=== PATIENT | male | born 1955 | race Caucasian/White ===

== ENCOUNTER 2016-12-21 09:39 | Emergency (ER) | payer BC ==
[~2016-12-21] VITALS: Ht 170.2 cm; Wt 53.6 kg
[~2016-12-21 09:39] MED LIST: ALBUAER2 INH; ASPI-232 PO; ATV1 PO; CALCTAB5 PO; HERBALS PO; LUTE10TA PO; MULT-506 PO; NICO21DI12 TD; OXYC-57 PO; RXC5 PO
[2016-12-21 09:40] VITALS: TEMP 36.3; Ht 170.2 cm; Wt 53.6 kg
--- NOTE | 2016-12-21 10:04 | EMERGENCY ROOM VISIT NOTE ---
History Report prepared by Anupama: Dulce Leal Under the Supervision of: Dr. Juan R Berg M.D. First contact with patient: 09:45 Chief Complaint: ABDOMINAL PAIN Stated Complaint: STOMACH PAIN Nursing Triage Summary: LLQ abd pain, nausea, comes and goes, sharp in nature. History of Present Illness The patient is a 61 year old male who presents to the Emergency Room with complaints of intermittent left lower quadrant abdominal pain that began two years ago. He currently rates his discomfort as a 7/10 in severity. The patient states that two years ago he had neck surgery and states that since then he has intermittently had left lower quadrant abdominal pain. He describes his discomfort as a sharp pain when it comes. The patient states that his pain normally starts at night, but states that by morning his pain is typically gone. He states that this morning his pain was still present. The patient notes that he has had problems with his bowel movements since his surgery. He states that right after his surgery he was taking 8-10 Percocet daily. The patient states that he was very constipated while taking the pain medications, so he stopped taking them completely. He states that he has been using Doctylax each night. The patient states that he has consulted his PCP regarding his pain, but states that he was told it was nothing to worry about. He states that he had a colonoscopy in October. The patient states that he had two polyps removed, but states that everything else was normal. The patient notes that last evening he had chills, but denies any fever or urinary symptoms. He states that he takes 1 mg of Lorazepam at night and medication for his depression. He states that he previously took Ibuprofen for his discomfort, but states that now he has been taking Tylenol. Source of History: patient Onset: two years ago Position: abdomen (LLQ) Symptom Intensity: 7/10 Quality: sharp Timing: intermittent Associated Symptoms: + chills, No fevers, No urinary symptoms Note: Associated Symptoms: constipation Review of Systems All systems have been listed, reviewed, and are negative other than those previously mentioned. Please see Additional Medical History Sheet. Past Medical & Surgical Medical Problems: (1) Arthritis Surgical Problems: (1) H/O neck surgery (2) H/O vasectomy Family History No significant family history Social History Smoking Status: Former Smoker Alcohol Use: none Drug Use: none Marital Status: single Occupation Status: retired Current/Historical Medications Scheduled Aspirin (Aspir-81), 81 MG PO QAM Echinacea (Echinacea), 2 CAP PO QAM Escitalopram (Lexapro), 10 MG PO QAM Lutein (Lutein), 10 MG PO QAM Misc Natural Products (Ginkgo Biloba), 1 TAB PO QAM Zinc Gluconate (Zinc), 1 TAB PO QAM Scheduled PRN Dicyclomine Hcl (Bentyl), 20 MG PO Q6H PRN for abdominal pain Lorazepam (Lorazepam), 1 MG PO Q8H PRN for Anxiety and/or Sedation Oxycodone HCl (Oxycodone HCl), 5 MG PO Q4H PRN for moderate pain (pain scale 4-6 ) Oxycodone/Acetaminophen 5MG/325MG (Percocet 5MG/325MG), 1-2 TABLETS PO Q4H PRN for RN Allergies Coded Allergies: Flu Virus Vaccine (Verified Allergy, Unknown, VERY SICK 2 WEEKS, 12/21/16) Propoxyphene (Verified Adverse Reaction, Intermediate, nausea & vomiting, 12/21/16) Physical Exam Vital Signs Date Time Temp Pulse Resp B/P Pulse Ox O2 Delivery O2 Flow Rate FiO2 12/21/16 12:34 63 18 156/88 98 Room Air 12/21/16 09:40 36.3 88 18 144/97 99 Room Air Physical Exam GENERAL: Patient awake, alert, oriented x 3 and anxious. Patient follows commands. Patient does not appear toxic. Patient is adequately hydrated and well-nourished. SKIN: No erythema, pallor, cyanosis or rash HEENT: Normal head, pupils equal, reactive to light and accommodation. Ears normal. Oral cavity and posterior pharynx appear normal. Neck: Without adenopathy, no neck vein distention. LUNGS: Clear to auscultation. No wheezes, no rales, no rhonchi. HEART: No murmurs. No gallops. No rubs ABDOMEN: Vague left lower quadrant abdominal tenderness. No masses, no rebound , no hepatomegaly or splenomegaly. RECTAL: Prostate is not enlarged, no masses. 1 small external hemorrhoid noted. No stool obtained. EXTREMITIES: No signs of trauma. No pedal or pretibial edema. No calf or thigh tenderness. NEUROLOGIC: Cranial nerves II-XII within normal limits. No gross motor sensory function deficits. Medical Decision & Procedures Laboratory Results 12/21/16 10:05 12/21/16 10:05 Test 12/21/16 10:05 12/21/16 11:10 Red Blood Count 4.42 M/uL (4.7-6.1) Mean Corpuscular Volume 88.7 fL (80-100) Mean Corpuscular Hemoglobin 31.4 pg (25-34) Mean Corpuscular Hemoglobin Concent 35.5 g/dl (32-36) RDW Standard Deviation 46.9 fL (36.4-46.3) RDW Coefficient of Variation 14.3 % (11.5-14.5) Mean Platelet Volume 10.9 fL (7.4-10.4) Anion Gap 10.0 mmol/L (3-11) Est Creatinine Clear Calc Drug Dose 45.2 ml/min Estimated GFR () 68.3 Estimated GFR (Non- 58.9 BUN/Creatinine Ratio 12.5 (10-20) Calcium Level 8.7 mg/dl (8.5-10.1) Total Bilirubin 0.7 mg/dl (0.2-1) Aspartate Amino Transf (AST/SGOT) 22 U/L (15-37) Alanine Aminotransferase (ALT/SGPT) 20 U/L (12-78) Alkaline Phosphatase 143 U/L (45-117) Total Protein 7.3 gm/dl (6.4-8.2) Albumin 3.6 gm/dl (3.4-5.0) Globulin 3.7 gm/dl (2.5-4.0) Albumin/Globulin Ratio 1.0 (0.9-2) Urine Color YELLOW Urine Appearance CLEAR (CLEAR) Urine pH 6.5 (4.5-7.5) Urine Specific [place] 1.010 (1.000-1.030) Urine Protein TRACE (NEG) Urine Glucose (UA) NEG (NEG) Urine Ketones TRACE (NEG) Urine Occult Blood NEG (NEG) Urine Nitrite NEG (NEG) Urine Bilirubin NEG (NEG) Urine Urobilinogen NEG (NEG) Urine Leukocyte Esterase NEG (NEG) Urine WBC (Auto) 1-5 /hpf (0-5) Urine RBC (Auto) 0-4 /hpf (0-4) Urine Hyaline Casts (Auto) 1-5 /lpf (0-5) Urine Epithelial Cells (Auto) 5-10 /lpf (0-5) Urine Bacteria (Auto) NEG (NEG) Laboratory results as stated above per my review. ED Course 0946: Past medical records reviewed. The patient was evaluated in room B12B. A complete history and physical examination was performed. 1238: I reevaluated the patient and he is resting comfortably. I discussed the exam findings with him and I discussed the treatment plan. He verbalized complete understanding and agreement. He is ready to go home. Medical Decision Nurses notes reviewed. Medical history sheet reviewed. Differential diagnosis includes but is not limited to: constipation, Crohn's disease, ulcerative colitis, bowel obstruction. The patient is here complaining of frequent constipation. He did have a bowel movement this morning. Rectal exam today does not reveal any impaction or stool. Blood work and urinalysis were also evaluated. I do not believe he requires any imaging studies today. The patient is not obstructed. The patient had a recent colonoscopy. The patient's been taking Dulcolax and a daily basis. I was prefer that he take Colace regularly and increase fiber in his diet. The patient was also given a prescription for Bentyl. The patient's to follow-up with his family physician. I have also encouraged him to follow- up with a kerrick kleaner operator. The patient improved while here in the ED without any medication. Impression Primary Impression: Constipation Scribe Attestation The scribe's documentation has been prepared under my direction and personally reviewed by me in its entirety. I confirm that the note above accurately reflects all work, treatment, procedures, and medical decision making performed by me. Departure Information Dispostion Home / Self-Care Prescriptions Dicyclomine Hcl (BENTYL) 20 Mg Tab 20 MG PO Q6H Y for abdominal pain, #30 TAB Prov: Juan R Berg M.D. 12/21/16 Referrals Calvin Estes M.D. (PCP) Forms HOME CARE DOCUMENTATION FORM, IMPORTANT VISIT INFORMATION Patient Instructions My [facility] Additional Instructions 1 Bentyl every 6 hours as needed for abdominal pain. 1 Colace twice a day. You should attempt to stop taking Dulcolax. Increase fluid intake. Increase fiber in your diet. Follow-up with a kerrick kleaner operator and with your family physician as soon as possible.
[2016-12-21] MEDS ORDERED: ECHI80CA PO (10:22)
[2016-12-21] MEDS ORDERED: ZINC1TAB PO (10:22)
[2016-12-21] MEDS ORDERED: ESCI10TA17 PO (10:22)
[2016-12-21] MEDS ORDERED: MISCTAB26 PO (10:22)
[2016-12-21 10:41] LABS: HEMATOCRIT 39.2 % (42-52); MEAN CELL VOLUME 88.7 fL (80-100); MEAN CORPUSCULAR HEMOGLOBIN 31.4 pg (25-34); MEAN CORPUSCULAR HGB CONC 35.5 g/dl (32-36); MEAN PLATELET VOLUME 10.9 fL (7.4-10.4); PLATELET COUNT 367 K/uL (130-400); RED BLOOD COUNT 4.42 M/uL (4.7-6.1); WHITE BLOOD COUNT 10.48 K/uL (4.8-10.8)
[2016-12-21 10:58] LABS: BUN/CREATININE RATIO 12.5 (10-20); CALCIUM 8.7 mg/dl (8.5-10.1); CREATININE 1.3 mg/dl (0.60-1.40); POTASSIUM 3.6 mmol/L (3.5-5.1)
[2016-12-21 12:16] LABS: URINE APPEARANCE CLEAR (CLEAR); URINE BILIRUBIN NEG (NEG); URINE COLOR YELLOW; URINE NITRITE NEG (NEG); URINE PH 6.5 (4.5-7.5); UROBILINOGEN NEG (NEG); ZZUR CULT IF INDIC CLEAN CATCH NO
[2016-12-21 12:27] LABS: MANUAL MICROSCOPIC REQUIRED? NO; REVIEW REQ? NO
[2016-12-21 12:34] VITALS: BP 156/88; PULSE 63; O2SAT 98
[2016-12-21] MEDS ORDERED: DICY20TA35 PO (12:48)
== END 2016-12-21 12:58 | disposition home or self-care (01) ==
LOC: C.EDB 09:40
DX: K59.00 Constipation, unspecified (principal); M19.90 Unspecified osteoarthritis, unspecified site; Z87.891 Personal history of nicotine dependence; Z79.82 Long term (current) use of aspirin; Z79.899 Other long term (current) drug therapy

== ENCOUNTER 2017-10-31 11:35 | Emergency (ER) | payer BC, OTHER ==
[~2017-10-31] VITALS: Ht 172.7 cm; Wt 54.3 kg
[~2017-10-31 11:35] MED LIST changes: -ALBUAER2 INH; -CALCTAB5 PO; +ECHI80CA PO; +ESCI10TA17 PO; -HERBALS PO; +MISCTAB26 PO; -MULT-506 PO; -NICO21DI12 TD; +ZINC1TAB PO
[2017-10-31 11:54] VITALS: TEMP 36.8; Ht 172.7 cm; Wt 54.3 kg
[2017-10-31] MEDS ORDERED: ALBUT/IPRATROP 3MG/0.5MG NEB 3 ML VIAL INH STA (12:58)
--- NOTE | 2017-10-31 13:01 | EMERGENCY ROOM VISIT NOTE ---
History Report prepared by Anupama: Baldomero Matthew Under the Supervision of: Dr. Rocky Willard M.D. First contact with patient: 12:43 Chief Complaint: SHORTNESS OF BREATH Stated Complaint: SOB, NAUSEA, TINGLING IN L HAND Nursing Triage Summary: Patient presents with c/o shortness of breath, nausea, fatigue, and tingling in his right hand. States nausea started a week ago. SOB for 4 days. Tingling in hand began a few hours ago History of Present Illness The patient is a 62 year old male who presents to the Emergency Room with complaints of worsening shortness of breath that began today several hours prior to arrival. The patient admits that he has shortness of breath at his baseline and has been a smoker for 40 years. He usually feels SOB when he wakes up in the morning and it subsides by the afternoon. Today it did not subside. The patient also complains of "numbness" in his bilateral hands as well as nausea. He takes Razepam daily for anxiety/panic attacks. 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 A total of 10 systems reviewed and were otherwise negative. Past Medical & Surgical Medical Problems: (1) Arthritis Surgical Problems: (1) H/O neck surgery (2) H/O vasectomy Old medical records were reviewed. Nurse's notes were reviewed and I agree with. Family History No significant family history Social History Smoking Status: Current Every Day Smoker Alcohol Use: none Drug Use: none Marital Status: single Occupation Status: retired Current/Historical Medications Scheduled Aspirin (Aspir-81), 81 MG PO QAM Echinacea (Echinacea), 2 CAP PO QAM Escitalopram (Lexapro), 10 MG PO QAM Lutein (Lutein), 10 MG PO QAM Misc Natural Products (Ginkgo Biloba), 1 TAB PO QAM Zinc Gluconate (Zinc), 1 TAB PO QAM Scheduled PRN Lorazepam (Lorazepam), 1 MG PO Q8H PRN for Anxiety and/or Sedation Allergies Coded Allergies: Flu Virus Vaccine (Verified Allergy, Unknown, VERY SICK 2 WEEKS, 12/21/16) Propoxyphene (Verified Adverse Reaction, Intermediate, nausea & vomiting, 12/21/16) Physical Exam Vital Signs Date Time Temp Pulse Resp B/P (MAP) Pulse Ox O2 Delivery O2 Flow Rate FiO2 10/31/17 13:45 65 10/31/17 11:54 36.8 94 24 127/87 99 Room Air Physical Exam General: Non-ill appearing middle aged male in no acute distress. HEENT: Normal cephalic atraumatic. Pupils are equal round and reactive to light. Extraocular movements are intact. Oropharynx is pink with moist mucous membranes. No swelling of the mouth lips or tongue. Neck: Supple with a midline trachea. No meningeal signs or stiffness, no JVD or bruits. No Stridor. Chest: Mildly tachypneic Clear to auscultation bilaterally. No wheezes or rhonchi. No increased work of breathing. Heart: regular rate and rhythm. Abdomen: Soft nontender, nondistended without rebound guarding or rigidity. Extremities: No cyanosis clubbing or edema. No calf tenderness or assymetry. PT complains of tingling in hands, no numbness, weakness, or contractures. Spine/Back. Non tender to palpation. No CVA tenderness Skin: Good turgor without rashes. Neurologic exam: Cranial nerves two through 12 are intact. Motor and sensation are intact and symmetrical throughout. Medical Decision & Procedures ER Provider Diagnostic Interpretation: Radiology results as stated below per my review and radiologist interpretation: CHEST ONE VIEW PORTABLE CLINICAL HISTORY: Atypical chest pain COMPARISON STUDY: 04/05/2015 FINDINGS: The chest has an emphysematous configuration. There is no focal pulmonary consolidation. There is no failure. There are no pleural effusions. Postsurgical changes are present within the cervical spine[ IMPRESSION: Emphysema. No acute findings. Electronically signed by: Christopher Mata M.D. 10/31/2017 1:14 PM Dictated Date/Time: 10/31/2017 1:14 PM Laboratory Results 10/31/17 13:30 Red Blood Count 5.13, Mean Corpuscular Volume 86.9, Mean Corpuscular Hemoglobin 31.2, Mean Corpuscular Hemoglobin Concent 35.9, Mean Platelet Volume 10.8, Neutrophils (%) (Auto) 68.5, Lymphocytes (%) (Auto) 18.0, Monocytes (%) (Auto) 12.1, Eosinophils (%) (Auto) 0.7, Basophils (%) (Auto) 0.5, Neutrophils # (Auto ) 7.15, Lymphocytes # (Auto) 1.88, Monocytes # (Auto) 1.26, Eosinophils # (Auto ) 0.07, Basophils # (Auto) 0.05 10/31/17 13:30 Test 10/31/17 13:30 10/31/17 13:36 White Blood Count 10.43 K/uL (4.8-10.8) Red Blood Count 5.13 M/uL (4.7-6.1) Hemoglobin 16.0 g/dL (14.0-18.0) Hematocrit 44.6 % (42-52) Mean Corpuscular Volume 86.9 fL (80-100) Mean Corpuscular Hemoglobin 31.2 pg (25-34) Mean Corpuscular Hemoglobin Concent 35.9 g/dl (32-36) Platelet Count 338 K/uL (130-400) Mean Platelet Volume 10.8 fL (7.4-10.4) Neutrophils (%) (Auto) 68.5 % Lymphocytes (%) (Auto) 18.0 % Monocytes (%) (Auto) 12.1 % Eosinophils (%) (Auto) 0.7 % Basophils (%) (Auto) 0.5 % Neutrophils # (Auto) 7.15 K/uL (1.4-6.5) Lymphocytes # (Auto) 1.88 K/uL (1.2-3.4) Monocytes # (Auto) 1.26 K/uL (0.11-0.59) Eosinophils # (Auto) 0.07 K/uL (0-0.5) Basophils # (Auto) 0.05 K/uL (0-0.2) RDW Standard Deviation 46.8 fL (36.4-46.3) RDW Coefficient of Variation 14.7 % (11.5-14.5) Immature Granulocyte % (Auto) 0.2 % Immature Granulocyte # (Auto) 0.02 K/uL (0.00-0.02) Anion Gap 10.0 mmol/L (3-11) Est Creatinine Clear Calc Drug Dose 36.3 ml/min Estimated GFR () 51.9 Estimated GFR (Non- 44.8 BUN/Creatinine Ratio 10.0 (10-20) Calcium Level 9.6 mg/dl (8.5-10.1) Total Bilirubin 1.6 mg/dl (0.2-1) Direct Bilirubin 0.2 mg/dl (0-0.2) Aspartate Amino Transf (AST/SGOT) 48 U/L (15-37) Alanine Aminotransferase (ALT/SGPT) 86 U/L (12-78) Alkaline Phosphatase 154 U/L (45-117) Total Protein 8.2 gm/dl (6.4-8.2) Albumin 4.2 gm/dl (3.4-5.0) Lipase 219 U/L (73-393) Bedside Troponin I < 0.030 ng/ml (0-0.045) Laboratory studies as stated above per my review. Medications Administered Medications (Trade) Dose Ordered Sig/[place] Route Start Time Stop Time Status Last Admin Dose Admin Albuterol/ Ipratropium (Duoneb) 3 ml NOW STAT INH 10/31/17 12:58 10/31/17 13:01 DC 10/31/17 13:38 3 ML ECG Indication: SOB/dyspnea Rate (beats per minute): 78 Rhythm: normal sinus Findings: no acute ischemic change, no ectopy Comparison ECG Date: 04/05/2015 Change: no significant change Change: Patient's electrocardiogram per my interpretation. ED Course 1247: Past medical records reviewed. The patient was evaluated in room A4, and a complete history and physical examination were performed. 1258: Ordered Duoneb 3 mL INH. 1457: Upon reevaluation, the patient is feeling well. I discussed the results and treatment plan with him. He verbalized agreement of the treatment plan. The patient was discharged home. Medical Decision Differential Diagnosis includes; COPD, anxiety, pneumonia, cardiac disease, hyperventilation, electrolyte or metabolic abnormality. This patient comes in as described above. He has shortness of breath and he has had tingling in both of his hands. He does suffer from anxiety and panic attacks that have felt similar. He did drive himself and says there is no way to get a ride home. He does not appear to be any significant distress and is only minimally tachypneic his lungs are clear. He is not tachycardic. EKG was obtained and shows no acute ischemic or arrhythmia. Chest x-ray was unremarkable and shows no acute infiltrate failure or pneumothorax seen. IV access was established and blood testing was obtained. He was reassessed frequently. He appears in no distress. Vital signs are stable. His cardiac biomarkers are not elevated. No acute electrolyte or metabolic abnormalies. This apparently has been going on for a long time. He is going to take Ativan when he gets home and was told not to drink, drive, or work. I recommend he follow his regular doctor any further follow-up with the specialist technical document writer. He is feeling better and will be discharged to home. Blood Pressure Screening Patient's blood pressure: Normal blood pressure Impression Primary Impression: SOB (shortness of breath) Additional Impression: Anxiety Scribe Attestation The scribe's documentation has been prepared under my direction and personally reviewed by me in its entirety. I confirm that the note above accurately reflects all work, treatment, procedures, and medical decision making performed by me. Departure Information Dispostion Home / Self-Care Referrals Calvin Estes M.D. (PCP) Forms HOME CARE DOCUMENTATION FORM, IMPORTANT VISIT INFORMATION Patient Instructions My [facility] Additional Instructions Rest. Drink plenty of fluids. When you get home and are not driving may try your Ativan Ativan may make you drowsy -do not take before drinking, driving, working Return if: Worsening of symptoms, shortness of breath, chest pain, fever or chills, any new problems or concerns Follow-up with your doctor on Friday for recheck or return to ER over the weekend if symptoms worsen Problem Qualifiers
--- NOTE | 2017-10-31 13:16 | DIAGNOSTIC IMAGING REPORT ---
CHEST ONE VIEW PORTABLE CLINICAL HISTORY: Atypical chest pain COMPARISON STUDY: 04/05/2015 FINDINGS: The chest has an emphysematous configuration. There is no focal pulmonary consolidation. There is no failure. There are no pleural effusions. Postsurgical changes are present within the cervical spine[ IMPRESSION: Emphysema. No acute findings. Electronically signed by: Christopher Mata M.D. 10/31/2017 1:14 PM Dictated Date/Time: 10/31/2017 1:14 PM
[2017-10-31 13:42] LABS: BASO % 0.5 %; BASO ABS # 0.05 K/uL (0-0.2); EOS % 0.7 %; EOS ABS # 0.07 K/uL (0-0.5); HEMATOCRIT 44.6 % (42-52); IG# 0.02 K/uL (0.00-0.02); LYMPH ABS # 1.88 K/uL (1.2-3.4); MEAN CELL VOLUME 86.9 fL (80-100); MEAN CORPUSCULAR HEMOGLOBIN 31.2 pg (25-34); MEAN CORPUSCULAR HGB CONC 35.9 g/dl (32-36); MEAN PLATELET VOLUME 10.8 fL (7.4-10.4); MONO % 12.1 %; MONO ABS # 1.26 K/uL (0.11-0.59); NEUT % 68.5 %; NEUT ABS # 7.15 K/uL (1.4-6.5); PLATELET COUNT 338 K/uL (130-400); RED CELL DISTRIBUTION WIDTH CV 14.7 % (11.5-14.5); RED CELL DISTRIBUTION WIDTH SD 46.8 fL (36.4-46.3); WHITE BLOOD COUNT 10.43 K/uL (4.8-10.8)
[2017-10-31 14:01] LABS: ALBUMIN 4.2 gm/dl (3.4-5.0); CALCIUM 9.6 mg/dl (8.5-10.1); CREATININE 1.62 mg/dl (0.60-1.40); POTASSIUM 4.6 mmol/L (3.5-5.1)
[2017-10-31 14:04] LABS: TOTAL PROTEIN 8.2 gm/dl (6.4-8.2)
[2017-10-31 15:00] VITALS: BP 164/90; PULSE 80; O2SAT 98
== END 2017-10-31 15:00 | disposition home or self-care (01) ==
LOC: C.EDB 11:36 → C.EDA 15:00
DX: R06.02 Shortness of breath (principal); F41.9 Anxiety disorder, unspecified; M19.90 Unspecified osteoarthritis, unspecified site; F17.210 Nicotine dependence, cigarettes, uncomplicated; Z79.82 Long term (current) use of aspirin; Z79.899 Other long term (current) drug therapy

== ENCOUNTER 2022-09-18 08:28 | Inpatient (IN) ==
[2022-09-18] MEDS ORDERED: cefTRIAXone SODIUM 2,000 MG/70 ML BAG IV STA (08:58)
[2022-09-18] MEDS ORDERED: dexAMETHasone**PF** 10 MG/ML VIAL IV ONE (08:58)
[2022-09-18] MEDS ORDERED: SODIUM CHLORIDE 0.9% 1000ML 2,000 ML IV ONE (08:58)
--- NOTE | 2022-09-18 09:05 | Emergency Department Note ---
Impression & Plan Pneumonia due to COVID-19 virus, Hypoxia, Acute hypotension ED Provider Note NAME: NIRMAL SINGH AGE: 67 SEX: M : 1955 ARRIVES VIA: Walk-In INFORMANT: Patient ED PROVIDER(S): Mario Granados DO CHIEF COMPLAINT: cough, SOB HPI: Patient is a 67-year-old male with a past medical history of bronchitis and COPD that presents to the ER for shortness of breath. Symptoms have been going on for the past 2 weeks. He did start about 2 weeks ago with cough, congestion, fever, sore throat, and runny nose. Sore throat and runny nose has abated. Still feels short of breath. Has been bringing up green and yellow sputum. He was seen evaluated last night and declined admission 2/2 hypoxia with pneumonia and elevated troponin. His COVID is also positive. He went home and did take his azithromycin this morning. He came back after getting a shower. Denies any belly pain, nausea, vomiting, or diarrhea. ROS: See above HPI for pertinent positives & negatives. A total of 10 systems reviewed and were otherwise negative. PAST MEDICAL HISTORY:See Below PAST SURGICAL HISTORY:See Below FAMILY HISTORY:See Below SOCIAL HISTORY:See Below HOME MEDICATIONS:See Below ALLERGIES:See Below VITALS:See Below PHYSICAL EXAMINATION: GENERAL: Sitting up in bed, alert, cachectic, disheveled, on nasal cannula EYE EXAM: normal conjunctiva. OROPHARYNX: mucous membranes are moist NECK: supple, no nuchal rigidity, no adenopathy, non-tender LUNGS: Clear to auscultation. Normal chest wall mechanics HEART: no murmurs, S1 normal and S2 normal ABDOMEN: abdomen soft, non-tender, normo-active bowel sounds, no masses, no rebound or guarding. UPPER EXTREMITIES: upper extremities are grossly normal. LOWER EXTREMITIES: No pitting edema. NEURO EXAM: Normal sensorium, cranial nerves II-XII grossly intact, normal speech, no gross weakness of arms, no gross weakness of legs. MEDICAL DECISION MAKING: Patient is a 67-year-old male who presents ER who for admission last night. He is COVID-positive with hypoxia and pneumonia. He is found to be hypotensive with systolic pressures in the 70s here. Given 2 L of IV fluids. He was given Rocephin as he already took azithromycin prior to arrival. Labs show leukocytosis 17,000. No significant anemia. Is elevated at 2.1 up from baseline of 1.5. LFTs bilirubin was unremarkable. Troponin was elevated again but decreasing. Lipase was normal. Chest x-ray confirms infiltrate. Patient was updated bedside discussed with hospitalist admitted for further work-up. Patient remained on 4 L nasal cannula while in the ER due to his hypoxia. Chronically wears 2. Triage Nursing notes reviewed. Limited review of prior medical records performed Vital Signs: reviewed and remarkable for hypotension Differential diagnosis: Differential diagnoses includes but is not limited to pneumonia, bronchitis, COPD/Asthma exacerbation, pneumothorax, pulmonary embolism, congestive heart failure, acute coronary syndrome ER treatment provided: See below Diagnostics interpreted by me: ECG: Sinus rhythm rate of 79 Normal axis No PVCs QTC 497 Cardiac Monitoring: An order was placed for continuous cardiac monitoring. The monitor shows a rate of 100 with sinus rhythm. Laboratory studies: As stated above and show below. Imaging studies: Portable AP upright 1 view of the chest shows a left lower lobe infiltrate Consultation(s): Discussed with the hospitalist for further evaluation Procedures: none Critical Care: I have personally spent 31 minutes of critical care time in the direct management of this patient. This includes bedside care, interpretation of diagnostic studies, and testing, discussion with consultants, patient, and family members, and other required patient management activities. This 31 minutes is in excess of all separately billable procedures. Past Med/Surg History Medical History (Updated 09/18/22 @ 13:56 by Mario Granados DO) Anxiety COPD (chronic obstructive pulmonary disease) Depression Tobacco use disorder Surgical History H/O cervical spine surgery No pertinent past surgical history Status post left knee surgery meniscal repair Vasectomy status Family History Mother Hypertension TIA (transient ischemic attack) Brother Stroke Hypertension CHF (congestive heart failure) Social History Smoking Status: Current every day smoker Tobacco Type: Cigarettes Age Started Using Tobacco: 15; Cigarettes Per Day: 6/day; Second Hand Exposure: No; Do You Dip or Chew Tobacco: No; Tobacco Cessation Education Requested by Patient: No Hx Alcohol Use: No Hx Substance Use: No Preferred Language: Vietnamese Communication Ability: Effective Lease Administrator Required: No Beliefs That Will Affect Care: None Current Living Situation: Alone Other Information That Helps Us Care for You: No Feels Safe at Home: Yes Safety Concerns: Feels Safe At This Time Assistive Devices: None Allergies Allergies Allergy/AdvReac Type Severity Reaction Status Date / Time propoxyphene AdvReac Intermediate nausea & Verified 12/21/16 10:20 vomiting Flu Virus Vaccine Allergy Unknown VERY SICK Uncoded 12/21/16 10:20 2 WEEKS chantix AdvReac Unknown Agitated Uncoded 09/18/22 09:58 Home Meds Home Medications Medication Instructions Recorded Confirmed escitalopram oxalate 10 mg tablet 10 mg PO QAM 09/18/22 09/18/22 lorazepam 1 mg tablet 1 mg PO HS PRN Anxiety 09/18/22 09/18/22 Results & Data (ED) Vital Signs Vital Signs - 24 hr 09/18/22 08:40 09/18/22 08:56 09/18/22 08:51 Temperature 36.4 C L Temperature Source Oral Pulse Rate 100 H 79 Pulse Rate from SpO2 Sensor 102 H Respiratory Rate 20 26 H Blood Pressure 72/52 L Blood Pressure Mean 58 Pulse Oximetry 91 95 Oxygen Delivery Method Room Air Room Air Nasal Cannula Oxygen Flow Rate 4 Sepsis Recent Fever Within 48 Hours Yes Sepsis New/Unexplained Change in Mental Status N/A Sepsis Action Taken by Nursing No Action Required 09/18/22 08:59 09/18/22 08:59 09/18/22 09:00 Temperature Temperature Source Pulse Rate 80 Pulse Rate from SpO2 Sensor Respiratory Rate 27 H Blood Pressure 133/79 131/83 Blood Pressure Mean 97 99 Pulse Oximetry Oxygen Delivery Method Nasal Cannula Nasal Cannula Nasal Cannula Oxygen Flow Rate 4 4 4 Sepsis Recent Fever Within 48 Hours Sepsis New/Unexplained Change in Mental Status Sepsis Action Taken by Nursing 09/18/22 09:00 09/18/22 09:10 09/18/22 09:20 Temperature Temperature Source Pulse Rate 78 73 72 Pulse Rate from SpO2 Sensor Respiratory Rate 20 22 22 Blood Pressure Blood Pressure Mean Pulse Oximetry Oxygen Delivery Method Nasal Cannula Nasal Cannula Nasal Cannula Oxygen Flow Rate 4 4 4 Sepsis Recent Fever Within 48 Hours Sepsis New/Unexplained Change in Mental Status Sepsis Action Taken by Nursing 09/18/22 09:30 09/18/22 09:30 Temperature Temperature Source Pulse Rate 63 Pulse Rate from SpO2 Sensor Respiratory Rate 14 Blood Pressure 196/89 H Blood Pressure Mean 124 Pulse Oximetry Oxygen Delivery Method Nasal Cannula Nasal Cannula Oxygen Flow Rate 4 4 Sepsis Recent Fever Within 48 Hours Sepsis New/Unexplained Change in Mental Status Sepsis Action Taken by Nursing Laboratory Data Result diagrams: 09/18/22 08:51 09/18/22 08:51 Lab Results 09/18/22 09/18/22 09/18/22 Range/Units 08:51 08:51 08:51 WBC 17.11 H (4.8-10.8) K/ul RBC 4.40 L (4.63-6.08) M/uL Hgb 13.5 L (14.0-18.0) g/dl Hct 36.9 L (40.1-51.0) % MCV 83.9 (80.0-100.0) fL MCH 30.7 (25.0-34.0) pg MCHC 36.6 H (32.0-36.0) g/dL RDW Std Deviation 43.8 (36.4-46.3) fL RDW Coeff of Ivana 14.3 (11.5-14.5) % Plt Count 556 H (130-400) K/uL MPV 10.6 (9.4-12.4) fL Immature Gran % (Auto) 0.7 % Neut % (Auto) 92.9 % Lymph % (Auto) 4.0 % [place] % (Auto) 2.2 % Eos % (Auto) 0.0 % Baso % (Auto) 0.2 % Neut # (Auto) 15.90 H (1.4-6.5) K/uL Lymph # (Auto) 0.69 L (1.2-3.4) K/uL [place] # (Auto) 0.37 (0.24-0.82) K/uL Eos # (Auto) 0.00 (0-0.50) K/uL Baso # (Auto) 0.03 (0-0.2) K/uL Immature Gran # (Auto) 0.12 H (0.00-0.02) K/uL Echinocytes 1+ Schistocytes 1+ Sodium 137 (136-145) mmol/L Potassium 3.9 (3.5-5.1) mmol/L Chloride 98 (98-107) mmol/L Carbon Dioxide 24 (21-32) mmol/L Anion Gap 15 H (3-11) BUN 35 H (6-23) mg/dl Creatinine 2.16 H D (0.6-1.4) mg/dl Est Cr Clr Drug Dosing 20.0 ml/min Est GFR ( Amer) 35.4 ml/min Est GFR (Non-Af Amer) 30.6 ml/min BUN/Creatinine Ratio 16.2 (10-20) Glucose 153 H (70-99(Fasting)) mg/dl Calcium 9.3 (8.5-10.1) mg/dl Total Bilirubin 1.1 H (0.2-1.0) mg/dl AST 26 (13-39) U/L ALT 17 (7-52) U/L Alkaline Phosphatase 95 (34-104) U/L Troponin I High Sens 33.5 H D (0-20) pg/ml C-Reactive Protein 15.63 H (0-0.5) mg/dl Total Protein 7.0 (6.0-8.3) gm/dl Albumin 3.5 (3.4-5.0) gm/dl Globulin 3.5 (2.5-4.0) gm/dl Albumin/Globulin Ratio 1.0 (0.9-2) Lipase 24 (11-82) U/L Administered Medications Fluticasone Propionate (Fluticasone Propionate Na Spr 16 Gm Btl) 2 sprays NA BID TERESO Stop: 10/18/22 12:29 Last Admin: 09/18/22 13:40 Dose: 2 sprays Documented By: JALYN Heparin Sodium (Porcine) (Heparin Sod 5,000 Unit/0.5 Ml Vial) 7,500 units SQ Q12 TERESO Stop: 10/18/22 12:59 Last Admin: 09/18/22 13:41 Dose: Not Given Documented By: JALYN Nicotine (Nicotine 14 Mg/24 Hr Patch) 14 mg TD QAM [facility] Stop: 10/18/22 12:29 Last Admin: 09/18/22 13:41 Dose: Not Given Documented By: JALYN Discontinued Medications Dexamethasone Sodium Phosphate (DexamethasonePf 10 Mg/Ml Vial) 6 mg IV NOW ONE Stop: 09/18/22 08:59 Last Admin: 09/18/22 09:20 Dose: 6 mg Documented By: MENG Sodium Chloride (Nss 1000ml) 2,000 mls @ 999 mls/hr IV .Q2H1M ONE Stop: 09/18/22 10:58 Last Infusion: 09/18/22 11:14 Dose: 0 mls/hr Documented By: Admin: 09/18/22 09:10 Dose: 999 mls/hr Documented By: MENG Ceftriaxone Sodium (Rocephin) 2,000 mg in 70 mls @ 140 mls/hr IV NOW STA Stop: 09/18/22 09:27 Last Infusion: 09/18/22 10:04 Dose: 0 mls/hr Documented By: Admin: 09/18/22 09:20 Dose: 140 mls/hr Documented By: MENG Imaging Data Radiologist's Impression: Chest X-Ray 09/18/22 08:32 XR chest 1V portable CLINICAL HISTORY: Chest pain, nonspecific COMPARISON STUDY: Chest radiograph September 17, 2022. FINDINGS: Postoperative findings within the spine are incidentally noted. Emph ysema. No pneumothorax or pleural effusion is present. Patchy bibasilar opacities are similar to prior exam. Cardiac size is normal. Mediastinal contours are normal. There is no evidence for pulmonary edema. IMPRESSION: No significant change in bibasilar opacities. The findings favor pneumonia or aspiration pneumonitis. Radiographic follow-up to ensure resolution is recommended. ACT 112: Negative or not required by law. Electronically signed by: Yg Torrez M.D. 09/18/2022 9:26 AM Discharge Plan Visit Data Chief Complaint: Referred by Doctor Stated Complaint: REFERRED BY ED Provider: Mario Granados Discharge Problem: Pneumonia due to COVID-19 virus, Hypoxia, Acute hypotension Patient Disposition: Admitted As Inpatient Discharge Instructions Interventions: ED Discharge Assessment Last Done: 09/18/22 11:22
[2022-09-18 09:09] LABS: Hematocrit (blood only) 36.9 % (40.1-51.0); Hemoglobin 13.5 g/dl (14.0-18.0); Mean Corpuscular Hemoglobin 30.7 pg (25.0-34.0); Mean Corpuscular Hgb Conc 36.6 g/dL (32.0-36.0); Mean Corpuscular Volume 83.9 fL (80.0-100.0); Mean Platelet Volume 10.6 fL (9.4-12.4); Platelet Count 556 K/uL (130-400); RDW Coefficient of Variation 14.3 % (11.5-14.5); RDW Standard Deviation 43.8 fL (36.4-46.3); White Blood Count 17.11 K/ul (4.8-10.8)
--- NOTE | 2022-09-18 09:23 | History & Physical Report ---
Date of Service September 18, 2022 Assessment & Plan (1) Pneumonia due to COVID-19 virus: (2) Hypoxia: Plan: - COVID-19 positive from 09/17, symptoms present since 09/05/22 - Procalcitonin pending - WBC, 17.11 improved from 21K last night, Lymphocytes 0.69, neutrophils 15.90 - CXR reviewed: showing bilateral opacities consistent with pneumonia, unlikely aspiration, no hx of vomiting or issues with swallowing, decreased po intake - O2 sats 95% on 4L, pt does not wear O2 at baseline, wean as tolerated - Remdesivir not indicated due to symptoms timeframe over 2 weeks. - Cont decadron 6 mg IV daily - Supportive care with albuterol inhaler, incentive spirometry, proning, mucinex (3) Elevated blood pressure, situational: Plan: - BP elevated to 198/89--> 169/102 - pt with hx of RUDDY and likely contributing to elevated pressure along with dehydration. (4) Acute renal failure: Plan: - Cr 216, BUN 35. Baseline 1.7-1.8. - Avoid nephrotoxins and renally reduce meds - Dehydration secondary to prerenal cause with decreased po intake, elevated troponin likely secondary to such trop 46-->33.5, no chest pain or pressure. Unlikely ACS. - Continue hydration with NSS - Monitor BMP daily (5) Tobacco use disorder: Plan: - Cessation encouraged - Nicotine patch 14 mcg daily ordered (6) Malnutrition: (7) Anxiety: Plan: - May continue lorazepam DVT PPx: - teds, scds, heparin subcu 7500 mg q8h CODE: Full Dispo: From home, likely to remain in the hospital x 1-2 days History of Present Illness Chief Complaint: Shortness of breath Primary Care Provider: Calvin Estes MD This is a 67-year-old male with PMHx of CKD stage IIIb, HLD, tobacco use disorder (smokes since age 15, currently smoking 6 to 7 cigarettes a day), and RUDDY who presented to [facility] care earlier yesterday morning (09/17) for complaints of respiratory illness. He was referred here for hypoxia where he was having O2 sats in the 50s on room air by conveinent care. He was placed on 2 L and sent to the ER via EMS. Last evening tested positive for COVID-19, with pneumonia seen on CXR. He was in [place] at that time. Pt refused admission and was discharged despite the ER trying to convince him to stay. The patient represented this morning to the ER after further consideration. He notes symptoms began before Thanksgiving, initially started with fevers, chills, cough, congestion, sore throat. He then further developed a poor appetite, decreased oral intake and feels significantly dehydrated. He did fall but denies hitting his head or LOC several days ago but did not seek medical attention. Today he notes continuation of his symptoms as well as progressive shortness of breath with exertional activities. He feels chilled this morning. Patient only takes 2 medications at home including lorazepam and Lexapro, took these this morning, as well as some other vitamins and minerals. He typically does not require any supplemental O2. Patient also notes weight loss of approximately 27+ pounds since retiring. 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 Pt lives at home by himself. Allergies Allergy/AdvReac Type Severity Reaction Status Date / Time propoxyphene AdvReac Intermediate nausea & Verified 12/21/16 10:20 vomiting Flu Virus Vaccine Allergy Unknown VERY SICK Uncoded 12/21/16 10:20 2 WEEKS chantix AdvReac Unknown Agitated Uncoded 09/18/22 09:58 Home Medications Medication Instructions Recorded Confirmed Type escitalopram oxalate 10 mg tablet 10 mg PO QAM 09/18/22 09/18/22 History lorazepam 1 mg tablet 1 mg PO HS PRN Anxiety 09/18/22 09/18/22 History Past Med/Surg History Medical History (Updated 09/18/22 @ 10:47 by Michelle Fernandes DO) Anxiety COPD (chronic obstructive pulmonary disease) Depression Tobacco use disorder Surgical History H/O cervical spine surgery No pertinent past surgical history Status post left knee surgery meniscal repair Vasectomy status Family History Mother Hypertension TIA (transient ischemic attack) Brother Stroke Hypertension CHF (congestive heart failure) Social History Smoking Status: Current every day smoker Tobacco Type: Cigarettes Age Started Using Tobacco: 15; Cigarettes Per Day: 6/day; Hx Alcohol Use: Yes Alcohol type: beer Alcohol type Comment: used to drink heavily , quit age 43yo Feels Safe at Home: Yes Review of Systems Review of Systems: All systems were reviewed and negative except as indicated in HPI above. Physical Exam Physical Exam: General: awake, alert, no apparent distress, + cachectic with BMI of 14.7 Head: Normocephalic, atraumatic ENT: PERRL, EOMI, no pharyngeal exudate, plus mucous membranes dry Chest: On for L via NC with O2 sats at 95%, diminished breath sounds throughout, no wheezing rales or rhonchi Cardiac: Regular rate and rhythm, no murmur, no JVD, normal peripheral pulses, good capillary refill Abdominal: Thin, NABS x 4 quadrants, soft, nondistended, nontender to palpation, no rebound or guarding Extremities: Normal inspection, no peripheral edema or erythema, calfs nontender to palpation Psych: Normal mood and affect Neuro: AAO x 3, strength intact bilaterally and rated 5/5, no motor deficits, speech is clear, no peripheral sensory deficits Results & Data Results & Data ([facility]) Vital Signs (Past 12 Hours) Vital Signs Temp Pulse Resp BP Pulse Ox O2 Del Method 09/18/22 08:56 Room Air 09/18/22 08:40 36.4 C L 100 H 20 72/52 L 91 Room Air Laboratory Results Short CBC 09/18/22 Range/Units 08:51 WBC 17.11 H (4.8-10.8) K/ul Hgb 13.5 L (14.0-18.0) g/dl Hct 36.9 L (40.1-51.0) % Plt Count 556 H (130-400) K/uL BMP 09/18/22 08:51 Sodium 137 Potassium 3.9 Chloride 98 Carbon Dioxide 24 BUN 35 H Creatinine 2.16 H D Glucose 153 H Calcium 9.3 Liver Function 09/18/22 Range/Units 08:51 Total Bilirubin 1.1 H (0.2-1.0) mg/dl AST 26 (13-39) U/L ALT 17 (7-52) U/L Alkaline Phosphatase 95 (34-104) U/L Albumin 3.5 (3.4-5.0) gm/dl Diagnostic Findings Chest X-Ray 09/18/22 08:32 XR chest 1V portable CLINICAL HISTORY: Chest pain, nonspecific COMPARISON STUDY: Chest radiograph September 17, 2022. FINDINGS: Postoperative findings within the spine are incidentally noted. Emphysema. No pneumothorax or pleural effusion is present. Patchy bibasilar opacities are similar to prior exam. Cardiac size is normal. Mediastinal contours are normal. There is no evidence for pulmonary edema. IMPRESSION: No significant change in bibasilar opacities. The findings favor pneumonia or aspiration pneumonitis. Radiographic follow-up to ensure resolution is recommended. ACT 112: Negative or not required by law. Electronically signed by: Yg Torrez M.D. 09/18/2022 9:26 AM ECG Additional Comments: 18-SEP-2022 08:56:08 [facility]-EDSTAT ROUTINE RETRIEVAL Normal sinus rhythm Possible Left atrial enlargement Prolonged QT Abnormal ECG When compared with ECG of 17-SEP-2022 17:36, (unconfirmed) No significant change was found 25mm/[id number] 241CID: 16Unconfirmed Vent. rate 79 BPM IA interval 136 ms QRS duration 88 ms QT/QTc 434/497 ms Code Status & VTE Plan Code Status Full code Pt further notes that he is hesitant to intubation, but is willing to have this as a treatment. If he would require ventilation for more than a 2 week period he would want extubated. Supervising Physician Co-Signing Physician Notes ATTENDING ADDENDUM: I have seen and examined the patient and have discussed the case with the provider above. I agree with the assessment and plan as stated with the following exceptions. 67 yo M presents again this morning with ongoing symptoms of covid pneumonia for the last couple of weeks. He presented to urgent care yesterday and was sent via EMS to the ER for hypoxia with a saturation in the 50s, but then later left the ER against medical advice. Today he endorses reports fevers, chills no appetite, no eating in 5 days sneezing some coughing up brown/green yellow short of breath states "you aren't going to stick me on a breathing machine right?" speaks about his brother being intubated for covid and he made it dialogue around the management was concerning for him and made him mistrustful confirmed full code "only if you will not keep me on the ventilator for more than 2 weeks" no BM x 5 days no eating for 5 days Symptoms have been ongoing since prior to . Physical exam reveals NAD on 4 LPM supplemental oxygen. Mucous membranes are dry. Lungs are clear to auscultation throughout. Cardiac auscultation reveals S1/2 heard without murmurs, gallops and rubs. Abdomen is soft, NTND. He is very thin and reports 25 lbs weight loss without clear intention. He states "since I retired" I haven't been lifting like I used to" when reporting the reason for the weight loss. Workup reveals leukocytosis of 17K, H/H 13.5/37 and reactive thrombocytosis with a platelet count 556. There is a left shift. There is a mild anion gap of 15 and acute renal failure is seen with BUN 35 and Creat 2.16, up from baseline 1.7 CXR reveals bibasilar opacities. Overall the patient is a smoker with covid pneumonia, presenting with hypoxia. He is out of the window of treatment for remdesivir and was already started on decadron in the ER, which will be continued. Procalcitonin pending, will stop antibiotics if this is negative given the probability this is a viral pneumonia. Will continue with supportive care including cough syrup PRN and Flonase daily. Cont to hospitalize him pending resolution of hypoxia and clinical improvement. Trend BMP in am after IVF resuscitation for treatment of acute renal failure 2/2 clinical dehydration. Highly sensitive troponin is elevated, but has trended down since yesterday. He denies any chest pain and EKG yesterday and today reveals no evidence of acute ischemia. This is likely reflective of demand ischemia in the setting of acute respiratory illness. Outpatient chart review reveals significant weight loss of 16kg in the last 5-7 years. Given he is a smoker between 50-80 yrs old with a 20 pack yr smoking history and no prior chest CT on file, will screen him for lung cancer per USPTF guidance in the setting of weight loss. Smoking cessation strongly encouraged. DO Dom
--- NOTE | 2022-09-18 09:28 | XRay Report ---
XR chest 1V portable CLINICAL HISTORY: Chest pain, nonspecific COMPARISON STUDY: Chest radiograph September 17, 2022. FINDINGS: Postoperative findings within the spine are incidentally noted. Emphysema. No pneumothorax or pleural effusion is present. Patchy bibasilar opacities are similar to prior exam. Cardiac size is normal. Mediastinal contours are normal. There is no evidence for pulmonary edema. IMPRESSION: No significant change in bibasilar opacities. The findings favor pneumonia or aspiration pneumonitis. Radiographic follow-up to ensure resolution is recommended. ACT 112: Negative or not required by law. Electronically signed by: Yg Torrez M.D. 09/18/2022 9:26 AM
[2022-09-18 09:31] LABS: Albumin Level 3.5 gm/dl (3.4-5.0); BUN Creatinine Ratio 16.2 (10-20); Bilirubin,Total 1.1 mg/dl (0.2-1.0); Calcium 9.3 mg/dl (8.5-10.1); Est GFR (African American) 35.4 ml/min; Est GFR (Non-African American) 30.6 ml/min; Globulin 3.5 gm/dl (2.5-4.0); Potassium 3.9 mmol/L (3.5-5.1)
[2022-09-18 09:41] LABS: Troponin I High Sensitivity 33.5 pg/ml (0-20)
[2022-09-18 09:51] LABS: Basophils # (auto) 0.03 K/uL (0-0.2); Basophils % (auto) 0.2 %; Echinocytes 1+; Immature Granulocytes # (auto) 0.12 K/uL (0.00-0.02); Immature Granulocytes % (auto) 0.7 %; Lymphocytes # (auto) 0.69 K/uL (1.2-3.4); Monocytes # (auto) 0.37 K/uL (0.24-0.82); Monocytes % (auto) 2.2 %; Neutrophils % (auto) 92.9 %; Schistocytes 1+
--- NOTE | 2022-09-18 09:57 | Communication Note ---
Date of Service: September 18, 2022 ATTENDING ADDENDUM: I have seen and examined the patient and have discussed the case with the provider above. I agree with the assessment and plan as stated with the following exceptions. 67 yo M presents again this morning with ongoing symptoms of covid pneumonia for the last couple of weeks. He presented to urgent care yesterday and was sent vi a EMS to the ER for hypoxia with a saturation in the 50s, but then later left the ER against medical advice. Today he endorses reports fevers, chills no appetite, no eating in 5 days sneezing some coughing up brown/green yellow short of breath states "you aren't going to stick me on a breathing machine right?" speaks about his brother being intubated for covid and he made it dialogue around the management was concerning for him and made him mistrustful confirmed full code "only if you will not keep me on the ventilator for more than 2 weeks" no BM x 5 days no eating for 5 days Symptoms have been ongoing since prior to . Physical exam reveals NAD on 4 LPM supplemental oxygen. Mucous membranes are dry. Lungs are clear to auscultation throughout. Cardiac auscultation reveals S1/2 heard without murmurs, gallops and rubs. Abdomen is soft, NTND. He is very thin and reports 25 lbs weight loss without clear intention. He states "since I retired" I haven't been lifting like I used to" when reporting the reason for the weight loss. Workup reveals leukocytosis of 17K, H/H 13.5/37 and reactive thrombocytosis with a platelet count 556. There is a left shift. There is a mild anion gap of 15 and acute renal failure is seen with BUN 35 and Creat 2.16, up from baseline 1.7 CXR reveals bibasilar opacities. Overall the patient is a smoker with covid pneumonia, presenting with hypoxia. He is out of the window of treatment for remdesivir and was already started on decadron in the ER, which will be continued. Procalcitonin pending, will stop antibiotics if this is negative given the probability this is a viral pneumonia. Will continue with supportive care including cough syrup PRN and Flonase daily. Cont to hospitalize him pending resolution of hypoxia and clinical improvement. Trend BMP in am after IVF resuscitation for treatment of acute renal failure 2/2 clinical dehydration. Highly sensitive troponin is elevated, but has trended down since yesterday. He denies any chest pain and EKG yesterday and today reveals no evidence of acute ischemia. This is likely reflective of demand ischemia in the setting of acute respiratory illness. DO Dom
[2022-09-18] MEDS ORDERED: LORazepam 1 MG TAB PO PRN (10:20)
[2022-09-18] MEDS ORDERED: ONDANSETRON INJ 2 MG/ML 2 ML VIAL IV PRN (12:06)
[2022-09-18] MEDS ORDERED: ACETAMINOPHEN 325 MG TAB PO PRN (12:06)
--- NOTE | 2022-09-18 12:11 | CT Scan Report ---
CT OF THE CHEST WITHOUT IV CONTRAST CLINICAL HISTORY: covid pna, hypoxia, weight loss COMPARISON STUDY: Chest radiographs October 31, 2017, September 17, 2022 and September 18, 2022. CT DOSE: 185.39 mGycm TECHNIQUE: Axial images of the chest were obtained without IV contrast. Images were reviewed in the axial, sagittal, and coronal planes. IV contrast was not administered for this examination. Automat ed exposure control was utilized for the study. A dose lowering technique was utilized adhering to t he principles of ALARA. FINDINGS: No enlarged axillary, mediastinal or hilar lymph nodes are present. The size of the heart is normal. There is no pericardial effusion. There is no pneumothorax or pleural effusion. Moderate t o severe upper lobe predominant emphysema is present. Multifocal consolidation within the lower lobes is noted with associated tree-in-bud nodules. Extensive secretions with bronchial wall thickening ar e noted within the bilateral lower lobe segmental bronchi. There is no cavitation. No central obstruc ting mass is identified. No upper lobe airspace opacities are present. A few small upper lobe pulmona ry nodules measure up to 4 mm. These are probably benign. There is no fracture within the bony thorax . A 7 mm lucent lesion within the lateral left 10th rib is probably benign. A final left renal calcul us is present. IMPRESSION: 1. Moderate multifocal consolidation with associated tree-in-bud nodules within the lower lobes. The findings represent pneumonia or aspiration pneumonitis given extensive secretions and bronchial wall thickening within the lower lobe bronchi. A follow-up chest CT in 6 months to ensure resolution is re commended. 2. Emphysema. 3. No thoracic lymphadenopathy. 4. 5 mm left renal calculus. ACT 112: Negative or not required by law. Electronically signed by: Yg Torrez M.D. 09/18/2022 12:09 PM
[2022-09-18] MEDS ORDERED: NICOTINE 14 MG/24 HR PATCH TD SCH (12:30)
[2022-09-18] MEDS: FLUTICASONE PROPIONATE NA SPR 16 GM BTL SCH ×2 (13:40→20:41)
[2022-09-18] MEDS: HEPARIN SOD 5,000 UNIT/0.5 ML VIAL SQ SCH ×2 (13:41→21:54)
--- NOTE | 2022-09-18 14:22 | Electrocardiogram Report ---
Test Reason : Blood Pressure : / mmHG Vent. Rate : 079 BPM Atrial Rate : 079 BPM P-R Int : 136 ms QRS Dur : 088 ms QT Int : 434 ms P-R-T Axes : 081 064 076 degrees QTc Int : 497 ms Normal sinus rhythm Possible Left atrial enlargement Prolonged QT Abnormal ECG When compared with ECG of 17-SEP-2022 17:36, (unconfirmed) No significant change was found Confirmed by Estrada Galo ([id number]) on 09/18/2022 2:22:24 PM Referred By: Confirmed By:Estrada Galo
[2022-09-18] MEDS ORDERED: guaiFENesin/DEXTROM SYRUP 100MG/10MG 5ML UDC PO PRN (14:43)
[2022-09-18] MEDS ORDERED: SODIUM CHLORIDE 0.9% 500 ML IV SCH (14:45)
[2022-09-18] MEDS ORDERED: ALBUTEROL HFA 8 GM INHALER INH SCH (15:00)
[2022-09-18] MEDS ORDERED: ALBUTEROL HFA 8 GM INHALER INH PRN (16:45)
[2022-09-18] MEDS ORDERED: guaiFENesin 600 MG TABCR PO SCH (21:00)
[2022-09-19 00:09] LABS: Base Excess ABG -0.4 mEq/L (-9-1.8); HCO3 ABG 19 mmol/L (19-24); Oxygen Saturation ABG 99.4 % (90-95); PCO2 ABG 20 mmHg (35-46); PO2 ABG 85 mmHg (80-95)
[2022-09-19 00:14] LABS: pH ABG 7.59 (7.35-7.45)
[2022-09-19 00:15] LABS: Allen Test POS (Pos)
[2022-09-19] MEDS ORDERED: MAGNESIUM SULFATE / D5W 1 GM/100 ML BAG IV ONE (01:18)
[2022-09-19] MEDS ORDERED: ESCITALOPRAM OXALATE 10 MG TAB PO SCH (09:00)
[2022-09-19] MEDS ORDERED: dexAMETHasone 1 MG TAB PO SCH (09:00)
--- NOTE | 2022-09-19 09:35 | Communication Note ---
Date of Service: September 19, 2022 Attending addendum: By around [place] date of 1955 was admitted with COVID-19 positive test (U07.1, COVID-19) with Acute Pneumonia (J12.89, Other viral pneumonia) (If respiratory failure or sepsis present, add as separate assessment) He signed out AMA this morning even after long discussion with the patient about the disease process. He is aware that his condition may get worse and even he could from the disease. In spite of all this advice and information he decided to sign out AMA. DR Ozzy Owen
--- NOTE | 2022-09-20 05:56 | Electrocardiogram Report ---
Test Reason : Blood Pressure : / mmHG Vent. Rate : 058 BPM Atrial Rate : 058 BPM P-R Int : 140 ms QRS Dur : 086 ms QT Int : 514 ms P-R-T Axes : 079 074 078 degrees QTc Int : 504 ms Sinus bradycardia Prolonged QT Abnormal ECG When compared with ECG of 18-SEP-2022 08:56, No significant change was found Confirmed by hSan Pedraza ([id number]) on 09/20/2022 5:55:29 AM Referred By: REFERRED SELF Confirmed By:Shan Pedraza
--- NOTE | 2022-09-20 05:56 | Electrocardiogram Report ---
Test Reason : Blood Pressure : / mmHG Vent. Rate : 049 BPM Atrial Rate : 049 BPM P-R Int : 148 ms QRS Dur : 084 ms QT Int : 556 ms P-R-T Axes : 077 075 061 degrees QTc Int : 502 ms Sinus bradycardia Prolonged QT Abnormal ECG When compared with ECG of 18-SEP-2022 08:56, Vent. rate has decreased BY 30 BPM Confirmed by Shan Pedraza ([id number]) on 09/20/2022 5:55:45 AM Referred By: REFERRED SELF Confirmed By:Shan Pedraza
--- NOTE | 2022-09-20 07:37 | Discharge Summary ---
Date of Service September 20, 2022 Admission HPI Per Admitting Provider This is a 67-year-old male with PMHx of CKD stage IIIb, HLD, tobacco use disorder (smokes since age 15, currently smoking 6 to 7 cigarettes a day), and RUDDY who presented to [facility] earlier yesterday morning (09/17) for complaints of respiratory illness. He was referred here for hypoxia where he was having O2 sats in the 50s on room air by conveinent care. He was placed on 2 L and sent to the ER via EMS. Last evening tested positive for COVID-19, with pneumonia seen on CXR. He was in [place] at that time. Pt refused admission and was discharged despite the ER trying to convince him to stay. The patient represented this morning to the ER after further consideration. He notes symptoms began before Thanksgiving, initially started with fevers, chills, cough, congestion, sore throat. He then further developed a poor appetite, decreased oral intake and feels significantly dehydrated. He did fall but denies hitting his head or LOC several days ago but did not seek medical attention. Today he notes continuation of his symptoms as well as progressive shortness of breath with exertional activities. He feels chilled this morning. Patient only takes 2 medications at home including lorazepam and Lexapro, took these this morning, as well as some other vitamins and minerals. He typically does not require any supplemental O2. Patient also notes weight loss of approximately 27+ pounds since retiring. 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 Pt lives at home by himself. Admission Exam Per Admitting Provider Physical Exam: General: awake, alert, no apparent distress, + cachectic with BMI of 14.7 Head: Normocephalic, atraumatic ENT: PERRL, EOMI, no pharyngeal exudate, plus mucous membranes dry Chest: On for L via NC with O2 sats at 95%, diminished breath sounds throughout, no wheezing rales or rhonchi Cardiac: Regular rate and rhythm, no murmur, no JVD, normal peripheral pulses, good capillary refill Abdominal: Thin, NABS x 4 quadrants, soft, nondistended, nontender to palpation, no rebound or guarding Extremities: Normal inspection, no peripheral edema or erythema, calfs nontender to palpation Psych: Normal mood and affect Neuro: AAO x 3, strength intact bilaterally and rated 5/5, no motor deficits, speech is clear, no peripheral sensory deficits Principal Diagnosis COVID PNA,HYPOXIA-AGAINST MEDICAL ADVICE Discharge Exam Was not examined Discharge Data Allergies Allergy/AdvReac Type Severity Reaction Status Date / Time propoxyphene AdvReac Intermediate nausea & Verified 12/21/16 10:20 vomiting Flu Virus Vaccine Allergy Unknown VERY SICK Uncoded 12/21/16 10:20 2 WEEKS chantix AdvReac Unknown Agitated Uncoded 09/18/22 09:58 Consultations 09/18/22 08:59 ED Decision to Admit Stat Ordered Studies 09/18/22 10:50 CT chest diagnostic wo con Routine Total Time Total Time Spent Total Time Spent (In Minutes): 20 minutes Discharge Plan Discharge Items Patient Disposition: Against Medical Advice Reason For Visit: COVID PNA,HYPOXIA Activity: Resume your previous activity Non-emergency contact: Primary Care Provider Follow-up/Referrals: Calvin Estes MD [Primary Care Provider] - Pending Studies at Discharge: No Stand-Alone Forms: Tip or Skip, Smoking Cessation Medications and DC Order Prescriptions: Continued lorazepam 1 mg tablet 1 mg PO HS PRN (Reason: Anxiety) escitalopram oxalate 10 mg tablet 10 mg PO QAM Discharge Orders: Left Against Medical Advice (Routine); Ordered 09/19/22 Ordered By: Nataliia Owen Admission Data Admit Date/Time: 09/18/22 09:32 Attending Provider: Nataliia Owen Admit Provider: Michelle Fernandes Primary Care Provider: Calvin Estes Other Providers: Michelle Fernandes
== END 2022-09-19 07:42 | disposition left against medical advice (07) | DRG 177 ==
LOC: ED 08:28 → SUATTDRO 09:32 → 2E 09:32